=== PATIENT | female | born 1990 | race Caucasian/White ===

== ENCOUNTER → 2017-09-11 | Day surgery (SDC) | payer OTHER ==
[~2017-09-11] VITALS: Ht 160 cm; Wt 64.0 kg
[~2017-09-11] MED LIST: ACETAMINOPHEN 1000 MG/100 ML 100 ML IV ONE; ADDE10XR PO; BUPIVACAINE LIPOSOME PF 1.3% 20 ML VIAL ONE; BUPIVACAINE/EPINEPHRINE 0.25% 50 ML VIAL ONE; BUPIVACAINE/EPINEPHRINE 0.5% PF 30 ML VIAL ONE; CHLORHEXIDINE GLUCONATE 2 % 1 PACK (2 CLOTHS) TOPICAL PRN; FAMOTIDINE 20 MG/2 ML VIAL ONE; LACTATED RINGER'S 1000 ML IV PRN; METOPROLOL TARTRATE 25 MG TAB PO PRN; MIDAZOLAM HCL 2 MG/2 ML VIAL ONE; MORPHINE SULFATE 4 MG/ML INJ ONE; POVIDONE IODINE 5% (ANTISEPSIS KIT) 4 APPLICATIONS EACH NARE PRN; SODIUM CHLORID 0.9% 500 ML IV PRN; ceFAZolin 2 GM PREMIX 50 ML IV SCH; fentaNYL CITRATE 250 MCG/5 ML AMP ONE
--- NOTE | 2017-09-11 14:09 | PD.OP ---
cc: Bakari Morse MD Operative Report Date of Surgery: September 11, 2017 Preoperative Diagnosis: Left Spigelian hernia Postoperative Diagnosis: No evidence of Spigelian hernia Procedure: Diagnostic laparoscopy Anesthesia: General endotracheal Surgeon: Bakari Morse [employer] Supervisor(s): None Operation and Findings: Operative findings and procedure: The patient was brought to the operating room and after satisfactory general endotracheal anesthesia was obtained, the abdomen was prepped and draped in the usual sterile fashion. Preoperatively she had undergone placement of a TAP block with Exparel. 0.5% Marcaine with epinephrine was used to infiltrate the skin for local anesthesia. A small incision was made in the midline between the umbilicus and the xiphoid and a 5 mm trocar was inserted into the peritoneal cavity under direct visualization. The abdomen was distended to 15 mmHg using carbon dioxide after which the camera was reinserted and visceral injury was carefully inspected for with none being identified. Under direct visualization a 5 port was placed in the left upper quadrant. Careful search of the abdominal wall showed adhesions to the midline which were taken down with harmonic scalpel without problem. The adhesions were omental in nature and did not involve any viscera. There is no bleeding noted during this dissection. A search for a spigelian hernia on the left side was undertaken. The only thing that could be identified was a small indentation in the left lower quadrant but on careful inspection as well as bimanual palpation from within the peritoneal cavity and externally there was absolutely no fascial defect that could be identified in this area and despite probing it extensively, there was no hernia present. The right side was inspected as well and found to have a similar area of indentation, and again no fascial defect could be identified. Along the left colic gutter just anterior to the descending colon in the mid abdomen there was an area of fatty tissue which appeared to be edematous but no cause for the the edema could be identified and there was no evidence of inflammatory change. In view of the lack of definitive evidence of a spigelian hernia, it was decided to abort the procedure at that point without placing mesh. The peritoneal cavity was once again checked for visceral injury, with none being identified. Hemostasis was checked for and found to be satisfactory. The carbon dioxide was vented as completely as possible to the atmosphere after which the ports were removed and the skin closed with interrupted 4-0 PDS subcuticular stitches. Steri-Strips were applied the patient was then awakened and taken from the operating room, in satisfactory condition, having tolerated the procedure without problem. Estimated blood loss was nil. The instrument, sponge, and needle counts were reported as being correct 2 at the end of the procedure. Bakari Morse MD September 11, 2017 14:09
[2017-09-11 15:50] VITALS: BP 105/62; PULSE 82; RESP 16; TEMP 98; O2SAT 99
== END | disposition home or self-care (01) ==
LOC: PHSDC 08:27
PROVIDERS: ATTEND Surgery
DX: R10.32 Left lower quadrant pain (principal); N92.1 Excessive and frequent menstruation with irregular cycle; F98.8 Other specified behavioral and emotional disorders with onset usually occurring in childhood and adolescence
CPT/HCPCS: 00790; 49320; C9290; J0131; J0690; J2250; J2270; J3010; J7120